=== PATIENT | male | born 1930 | race Caucasian/White ===

== ENCOUNTER → 2017-01-31 | Outpatient (CLI) | payer MEDICARE, BC ==
[~2017-01-31] MED LIST: ALLO100T30 PO; ATOR20TA9 PO; Armour Thyroid PO; CHOL10003 PO; GABA600T2 PO; MACULAR PROTECT PO; MULT-82 PO; OMEG1CAP23 PO; PIND10TA PO; RIVA20TA PO; TAMS0.4C2 PO; TICA90TA PO; TRIA1TAB3 PO; [UNRECOGNIZED DRUG - OTHER] PO
== END | disposition home or self-care (01) ==
LOC: CFH 12:50
PROVIDERS: ATTEND Internal Medicine Cardiovascular Disease
DX: I08.3 Combined rheumatic disorders of mitral, aortic and tricuspid valves (principal); I48.91 Unspecified atrial fibrillation; I10 Essential (primary) hypertension; E78.5 Hyperlipidemia, unspecified; Z95.1 Presence of aortocoronary bypass graft
CPT/HCPCS: 93306